=== PATIENT | female | born 1995 | race African-American/Black ===

== ENCOUNTER 2017-08-14 20:37 | Emergency (ER) | payer SELFPAY ==
[2017-08-14] MEDS ORDERED: ALBUTEROL SUL0.083 % IN (20:49)
--- NOTE | 2017-08-14 21:12 | NUR ---
BREATHING TREATMENT GIVEN. BREATHING TECH. FOR GOOD DEPOSITION TO THE LUNGS.
[2017-08-14] MEDS ORDERED: ZITHROMAX250 MG PO (21:38)
[2017-08-14] MEDS ORDERED: MEDDOSEPAK PO (21:38)
[2017-08-14] MEDS ORDERED: PROVENTIL HFA IN (22:00)
[2017-08-14 22:15] VITALS: BP 134/64
== END 2017-08-14 22:15 | disposition home or self-care (01) | DRG 203 ==
LOC: ED 20:37
DX: J45.901 Unspecified asthma with (acute) exacerbation (principal)